=== PATIENT | male | born 1985 | race Caucasian/White ===

== ENCOUNTER 2016-11-09 09:55 | Observation (INO) | payer BC ==
[~2016-11-09] VITALS: Ht 180.3 cm; Wt 96.7 kg
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
--- NOTE | 2016-11-09 13:10 | ED ORDER SUMMARY ---
..... Patient: BUZZ SCHWAB OrderSheet [facility] VisitID: [id number] [place] [address] 31y, M Registration Date/Time: 11/09/2016 ORDER SHEET Weight: 96.1 kg (stated) Allergies: No Known Drug Allergy GENERAL ORDERS: Chest 2V Urgent (11:01 11/09/2016 JSimbeck R.N. verbal order read back to Nanette SINGLETON) (Ack 11:02 IJurca ER Tech1) (11:50 JSimbeck R.N.) CT Abd/Pel w Cont (Yes) (N/A) Urgent (12:19 11/09/2016 Nanette SINGLETON) (Ack 12:23 IJurca ER Tech1) (Cancelled: Wrong Order12:34 IJurca ER Tech1) CBC w Diff Urgent (12:19 11/09/2016 Nanette SINGLETON) (Ack 12:23 Abigaila ER Tech1) (12:57 JSimbeck R.N.) CMP Urgent (12:19 11/09/2016 Nanette SINGLETON) (Ack 12:23 LOTTIEurca ER Tech1) (12:57 JSimbeck R.N.) Lipase Urgent (12:19 11/09/2016 Nanette SINGLETON) (Ack 12:23 LOTTIEurca ER Tech1) (12:57 JSimbeck R.N.) CT Abd/Pel wo Cont Urgent (12:32 11/09/2016 IJurca ER Tech1 written order Nanette SINGLETON) (Ack 12:34 LOTTIEurca ER Tech1) (12:39 [place]) MEDICATION ORDERS: IV FLUIDS: IV NS : initial bolus none -, then 1000 mL/hr for 1h (NOW); Urgent (12:20 11/09/2016 Nanette SINGLETON) (12:58 JSimbeck R.N.) Dilaudid IV 0.5 mg (NOW) (13:52 11/09/2016 Nanette SINGLETON) (14:00 LWhalen R.N.) Zofran IV 4 mg (NOW) (13:52 11/09/2016 Nanette SINGLETON) (14:02 LWhalen R.N.) ORDER SHEET NOTES: [Electronically signed by Craig Woody R.N. (15:11/09/2016)] [Electronically signed by Chase Bergman MD (00:17 11/10/2016)] [Electronically locked/signed by Criag Woody R.N. (:11/09/2016)]
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
--- NOTE | 2016-11-09 13:10 | ED ORDER SUMMARY ---
..... Patient: BUZZ SCHWAB OrderSheet [facility] VisitID: [id number] [place] [address] 31y, M Registration Date/Time: 11/09/2016 ORDER SHEET Weight: 96.1 kg (stated) Allergies: No Known Drug Allergy GENERAL ORDERS: Chest 2V Urgent (11:01 11/09/2016 JSimbeck R.N. verbal order read back to Nanette SINGLETON) (Ack 11:02 IJurca ER Tech1) (11:50 JSimbeck R.N.) CT Abd/Pel w Cont (Yes) (N/A) Urgent (12:19 11/09/2016 Nanette SINGLETON) (Ack 12:23 IJurca ER Tech1) (Cancelled: Wrong Order12:34 IJurca ER Tech1) CBC w Diff Urgent (12:19 11/09/2016 Nanette SINGLETON) (Ack 12:23 Abigaila ER Tech1) (12:57 JSimbeck R.N.) CMP Urgent (12:19 11/09/2016 Nanette SINGLETON) (Ack 12:23 LOTTIEurca ER Tech1) (12:57 JSimbeck R.N.) Lipase Urgent (12:19 11/09/2016 Nanette SINGLETON) (Ack 12:23 LOTTIEurca ER Tech1) (12:57 JSimbeck R.N.) CT Abd/Pel wo Cont Urgent (12:32 11/09/2016 IJurca ER Tech1 written order Nanette SINGLETON) (Ack 12:34 LOTTIEurca ER Tech1) (12:39 [place]) MEDICATION ORDERS: IV FLUIDS: IV NS : initial bolus none -, then 1000 mL/hr for 1h (NOW); Urgent (12:20 11/09/2016 Nanette SINGLETON) (12:58 JSimbeck R.N.) Dilaudid IV 0.5 mg (NOW) (13:52 11/09/2016 Nanette SINGLETON) (14:00 LWhalen R.N.) Zofran IV 4 mg (NOW) (13:52 11/09/2016 Nanette SINGLETON) (14:02 LWhalen R.N.) ORDER SHEET NOTES: [Electronically signed by Craig Woody R.N. (15:11/09/2016)] [Electronically signed by Chase Bergman MD (00:17 11/10/2016)] [Electronically locked/signed by Craig Woody R.N. (:11/09/2016)]
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
[2016-11-09 15:31] VITALS: BP 120/57
[2016-11-09 18:02] VITALS: BP 143/71
[2016-11-09 22:19] VITALS: BP 101/54
--- NOTE | 2016-11-10 00:17 | ED MAR SUMMARY ---
..... Medication Administration Record [facility] [address] [place] [address] Patient: BUZZ SCHWAB Visit ID: [id number] 31y, M Weight: 96.1 kg Height/Length: 71 in BMI: 29.6 ALLERGIES: No Known Drug Allergy Start 12:50 11/09/2016 Craig Woody R.N., Stop 14:00 11/09/2016 Craig Woody R.N. Medication Administered: IV NS (SALINE), Dose: IV Fluids over 1 hour(s), Rate: 999 mL/hr, Dispensed: 1000 mL bag, Site: #1 left AC. Medication Ordered: IV NS : initial bolus none -, then 1000 mL/hr for 1h (NOW); Urgent. Given 14:00 11/09/2016 Per Ruiz R.N. Medication Administered: DILAUDID [IVP] (HYDROMORPHONE HCL PF), Dose: 0.5 mg IVP over 2 minute(s), Site: #1 left AC. Medication Ordered: Dilaudid IV 0.5 mg (NOW). Given 14:02 11/09/2016 Per Ruiz R.N. Medication Administered: ZOFRAN [IVP] (ONDANSETRON HCL), Dose: 4 mg IVP over 1 minute(s), Site: #1 left AC. Medication Ordered: Zofran IV 4 mg (NOW).
--- NOTE | 2016-11-10 00:17 | ED MED RECONCILIATION SUMMARY ---
Patient: BUZZ SCHWAB Medication Reconciliation Report [facility] VisitID: [id number] [address] [place] [address] 31y, M Registration Date/Time: 11/09/2016 Weight: 96.1 kg Height/Length: 71 in. BMI: 29.6 ALLERGIES: No Known Drug Allergy The patient's Home Medications are listed below: NONE. The source(s) of the original Home Medication information: Not obtained. The following Medications were given to the patient in the Emergency Department: IV NS IV Fluids bolus 0, then 999 mL/hr, administered: 11/09/2016 12:50:00 PM Dilaudid [IVP] IVP 0.5 mg, administered: 11/09/2016 2:00:00 PM Zofran [IVP] IVP 4 mg, administered: 11/09/2016 2:02:00 PM The following Medications were prescribed to the patient: Alupent oral inhaler: inhale 2 puffs via spacer every 4 hours as needed for breathing problems. Dispense one (1) unit. No refills. Substitution is permissible.(2-4 puffs every 4 hours if needed.) -- Chase Bergman MD
--- NOTE | 2016-11-10 00:17 | ED MED RECONCILIATION SUMMARY ---
Patient: BUZZ SCHWAB Medication Reconciliation Report [facility] VisitID: [id number] [address] [place] [address] 31y, M Registration Date/Time: 11/09/2016 Weight: 96.1 kg Height/Length: 71 in. BMI: 29.6 ALLERGIES: No Known Drug Allergy The patient's Home Medications are listed below: NONE. The source(s) of the original Home Medication information: Not obtained. The following Medications were given to the patient in the Emergency Department: IV NS IV Fluids bolus 0, then 999 mL/hr, administered: 11/09/2016 12:50:00 PM Dilaudid [IVP] IVP 0.5 mg, administered: 11/09/2016 2:00:00 PM Zofran [IVP] IVP 4 mg, administered: 11/09/2016 2:02:00 PM The following Medications were prescribed to the patient: Alupent oral inhaler: inhale 2 puffs via spacer every 4 hours as needed for breathing problems. Dispense one (1) unit. No refills. Substitution is permissible.(2-4 puffs every 4 hours if needed.) -- Chase Bergman MD
--- NOTE | 2016-11-10 00:17 | ED DISCHARGE INSTRUCTIONS ---
Patient: BUZZ SCHWAB General Instructions [facility] VisitID: [id number] [place] [address] 31y, M Registration Date/Time: 11/09/2016 Acute bronchospasm Contusion to the anterior chest. ABDOMINAL PAIN WITH FREE INTRAPERITONEAL FLUID UNDETERMINED LIVER LESION. INSTRUCTIONS (CONSIDER [facility] FOR TREATMENT EVALUATION IMMEDIATE RECHECK IF WORSE.). Prescription Medications: Alupent oral inhaler: inhale 2 puffs via spacer every 4 hours as needed for breathing problems. Dispense one (1) unit. No refills. Substitution is permissible. (2-4 puffs every 4 hours if needed.) ADDITIONAL INFORMATION Contusion,Soft Tissue You have a CONTUSION, which is a bruise with swelling and some bleeding under the skin. There are no broken bones. This injury takes a few days to a few weeks to heal. Home Care: 1) Keep the injured part elevated to reduce pain and swelling. This is especially important during the first 48 hours. 2) Make an ice pack (ice cubes in a plastic bag, wrapped in a towel) and apply for 20 minutes every 1-2 hours the first day. Continue this 3-4 times a day until the pain and swelling goes away. 3) You may use acetaminophen (Tylenol) or ibuprofen (Motrin, Advil) to control pain, unless another pain medicine was prescribed. [ NOTE : If you have chronic liver or kidney disease or ever had a stomach ulcer or GI bleeding, talk with your doctor before using these medicines.] Follow Up with your doctor or this facility if you are not improving within the next THREE days. [NOTE: If X-rays were taken, they will be reviewed by a radiologist. You will be notified of any new findings that may affect your care.] Get Prompt Medical Attention if any of the following occur: -- Pain or swelling increases -- Injured arm or leg becomes cold, blue, numb or tingly -- Redness, warmth or drainage from the skin Bronchospasm (Adult) Bronchospasm occurs when the airways (bronchial tubes) go into spasm and contract. This makes it hard to breathe and causes wheezing (a high-pitched whistling sound). Bronchospasm can also cause frequent coughing without the wheezing sound. Bronchospasm is due to irritation, inflammation or allergic reaction of the airways. People with asthma get bronchospasm. However, not everyone with bronchospasm has asthma. Being exposed to harmful fumes, a recent case of bronchitis, or a flare-up of chronic emphysema (COPD) may cause the airways to spasm. An episode of bronchospasm may last 7-14 days. Medicine may be prescribed to relax the airways and prevent wheezing. Antibiotics will be prescribed only if your doctor thinks there is a bacterial infection. Antibiotics do not help a viral infection. Home Care: Drink lots of water or other fluids (at least 10 glasses a day) during an attack. This will loosen lung secretions and make it easier to breathe. If you have heart or kidney disease, check with your doctor before you drink extra amounts of fluids. Take prescribed medicine exactly at the times advised. If you have a hand-held inhaler or aerosol breathing medicine, do not use it more than once every four hours, unless told to do so. If prescribed an antibiotic or prednisone, take all of the medicine even if you are feeling better after a few days. Do not smoke. Avoid being exposed to the smoke of others. If you were given an inhaler, use it exactly as directed. If you need to use it more often than prescribed, your condition may be getting worse. Contact your doctor or this facility. Follow Up With Your Doctor, Or As Directed. [ NOTE: If you are age 65 or older, or if you have chronic asthma or COPD, we recommend a PNEUMOCOCCAL VACCINATION every five years and a yearly INFLUENZA VACCINATION (FLU-SHOT) every . Ask your doctor about this.] Get Prompt Medical Attention If Any Of The Following Occur: Increased wheezing or shortness of breath Need to use your inhalers more often than usual without relief Fever of 100.4F (38C) or higher, or as directed by your healthcare provider Coughing up lots of dark-colored or bloody sputum (mucus) Chest pain with each breath You do not start to improve within 24 hours You have been given the following additional information: Contusion, Soft Tissue Bronchospasm (Adult) (Electronically signed by Chase Bergman MD 11/10/2016 0:17)
--- NOTE | 2016-11-10 00:17 | ED MAR SUMMARY ---
..... Medication Administration Record [facility] [address] [place] [address] Patient: BUZZ SCHWAB Visit ID: [id number] 31y, M Weight: 96.1 kg Height/Length: 71 in BMI: 29.6 ALLERGIES: No Known Drug Allergy Start 12:50 11/09/2016 Craig Woody R.N., Stop 14:00 11/09/2016 Craig Woody R.N. Medication Administered: IV NS (SALINE), Dose: IV Fluids over 1 hour(s), Rate: 999 mL/hr, Dispensed: 1000 mL bag, Site: #1 left AC. Medication Ordered: IV NS : initial bolus none -, then 1000 mL/hr for 1h (NOW); Urgent. Given 14:00 11/09/2016 Per Ruiz R.N. Medication Administered: DILAUDID [IVP] (HYDROMORPHONE HCL PF), Dose: 0.5 mg IVP over 2 minute(s), Site: #1 left AC. Medication Ordered: Dilaudid IV 0.5 mg (NOW). Given 14:02 11/09/2016 Per Ruiz R.N. Medication Administered: ZOFRAN [IVP] (ONDANSETRON HCL), Dose: 4 mg IVP over 1 minute(s), Site: #1 left AC. Medication Ordered: Zofran IV 4 mg (NOW).
[2016-11-10 02:20] VITALS: BP 107/51
[2016-11-10 06:46] VITALS: BP 107/58
[2016-11-10 10:36] VITALS: BP 108/51
[2016-11-10] MEDS ORDERED: NORCO1 TA1 PO (11:43)
--- NOTE | 2016-11-10 11:43 | Provider's Discharge Care Plan ---
Problem, Goal, Plan Problem List 1. Liver hematoma and contusion Instructions: Stop smoking
--- NOTE | 2016-11-10 11:43 | Provider's Discharge Care Plan ---
Problem, Goal, Plan Problem List 1. Liver hematoma and contusion Instructions: Stop smoking
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
[2016-11-10 14:22] VITALS: BP 135/77
== END 2016-11-10 16:05 | disposition home or self-care (01) ==
LOC: ED SRH 09:55 → ACUTE2 SRH 13:19 → TRANS SRH 13:19 → ACUTE2 SRH 14:45
PROVIDERS: ADMIT Emergency Medicine Emergency Medical Services
DX: S36.112A Contusion of liver, initial encounter (principal); S22.22XA Fracture of body of sternum, initial encounter for closed fracture; S06.0X9A Concussion with loss of consciousness of unspecified duration, initial encounter; Y04.2XXA Assault by strike against or bumped into by another person, initial encounter; Y92.511 Restaurant or cafe as the place of occurrence of the external cause; Y99.8 Other external cause status; F17.210 Nicotine dependence, cigarettes, uncomplicated
CPT/HCPCS: 29230; 29247; 29263; 90004; 90074; 90100; 91162; 91163; 92235; 95059

== ENCOUNTER 2016-11-14 10:07 | Outpatient (CLI) | payer BC ==
[~2016-11-14 10:07] MED LIST: NORCO1 TA1 PO
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
== END 2016-11-14 23:00 | disposition home or self-care (01) ==
LOC: US SRH 10:07
DX: S36.118A Other injury of liver, initial encounter (principal); S36.113A Laceration of liver, unspecified degree, initial encounter; S36.112A Contusion of liver, initial encounter